=== PATIENT | female | born 1995 | race Caucasian/White ===

== ENCOUNTER 2018-01-26 16:06 | Emergency (ER) | payer OTHER ==
[2018-01-26 16:44] VITALS: BP 112/85; PULSE 97; RESP 18; TEMP 98.2
[2018-01-26] MEDS ORDERED: IBUPROFEN 600 MG TAB PO STA (17:02)
--- NOTE | 2018-01-26 17:16 | ED ---
Lower Extremity Injury HPI - General Chief Complaint: Extremity Injury, Lower Stated Complaint: Knee pain Time Seen by Provider: 01/26/18 16:44 Source: patient Mode of arrival: wheelchair Limitations: no limitations - History of Present Illness Initial Comments: 23-year-old female patient presents to the emergency department today for evaluation of left knee pain. Patient states approximately an hour and a half ago she was up in a trailer when she jumped down landing hard on her left leg. Patient states that she felt a pop in her anterior knee when this occurred. Patient states that she is having some mild anterior pain but feels like her knee is unstable when she attempts to walk. She denies any pain radiation down the leg. Denies any numbness or tingling to the leg. Denies any previous knee injury or surgery. She denies falling down with injury, hitting her head, losing consciousness. Patient denies any headache, neck pain, back pain, chest pain, shortness of breath, dizziness, weakness, abdominal pain, nausea, vomiting , or difficulties with bowel movements or urination. - Related Data Previous Rx's Medication Instructions Recorded Ibuprofen [Motrin] 600 mg PO Q8HR PRN #30 tab 01/26/18 Allergies Allergy/AdvReac Type Severity Reaction Status Date / Time No Known Allergies Allergy Verified 01/26/18 16:44 Review of Systems ROS Statement: Those systems with pertinent positive or pertinent negative responses have been documented in the HPI. ROS Other: All systems not noted in ROS Statement are negative. Past Medical History Past Medical History: No Reported History History of Any Multi-Drug Resistant Organisms: None Reported Past Surgical History: No Surgical Hx Reported Past Psychological History: No Psychological Hx Reported Smoking Status: Never smoker Past Alcohol Use History: None Reported Past Drug Use History: None Reported General Exam Limitations: no limitations General appearance: alert, in no apparent distress, other (This is a well- developed, well-nourished adult female patient in no acute distress. Vital signs upon presentation are temperature 98.2F, pulse 97, respirations 18, blood pressure 112/85, pulse ox 100% on room air.) Eye exam: Present: normal appearance, PERRL, EOMI. Absent: scleral icterus, conjunctival injection, periorbital swelling ENT exam: Present: normal exam, normal oropharynx, mucous membranes moist Respiratory exam: Present: normal lung sounds bilaterally. Absent: respiratory distress, wheezes, rales, rhonchi, stridor Cardiovascular Exam: Present: regular rate, normal rhythm, normal heart sounds. Absent: systolic murmur, diastolic murmur, rubs, gallop, clicks GI/Abdominal exam: Present: soft, normal bowel sounds. Absent: distended, tenderness, guarding, rebound, rigid Extremities exam: Present: normal inspection, full ROM, normal capillary refill , other (Pain with valgus and varus maneuvers. Skin is pink, warm, and dry. Cap refills less than 3 seconds. Pedal pulses 2+ and equal bilaterally. Patient has full range of motion to the left knee with full flexion and extension.). Absent: tenderness, pedal edema, joint swelling, calf tenderness Neurological exam: Present: alert, oriented X3, CN II-XII intact Psychiatric exam: Present: normal affect, normal mood Skin exam: Present: warm, dry, intact, normal color. Absent: rash Course Vital Signs 01/26/18 16:42 Temperature 98.2 F Pulse Rate 97 Respiratory 18 Rate Blood Pressure 112/85 O2 Sat by Pulse 100 Oximetry Medical Decision Making - Medical Decision Making 23-year-old female patient presents to emergency department today for evaluation of left knee pain. Physical examination is relatively unremarkable. Patient had full range of motion pain with valgus and varus maneuvers. X-ray was obtained and showed a small knee joint effusion but no evidence of osseous abnormality. Did discuss the patient most likely has tendon or ligamentous injury. She is instructed to follow-up with orthopedics for recheck in 1-2 days. We will give patient a knee immobilizer to use until she follows up. Prescription for crutches. Anti-inflammatory pain prescription. Return parameters were discussed in detail. She verbalizes understanding and agrees with this plan. - Radiology Data Radiology results: report reviewed, image reviewed X-ray of the left knee was obtained. Findings show small knee joint effusion. No fracture or dislocation. Joint spaces are normal. Impression by Dr. Villegas shows small joint effusion. No fracture seen. Disposition Clinical Impression: Right knee sprain Disposition: HOME SELF-CARE Condition: Good Instructions: Knee Sprain (ED), Knee Immobilizer (ED) Additional Instructions: Rest, ice, elevate the left knee. Use knee immobilizer as needed for comfort and support. Follow-up with orthopedics for reevaluation in 1-2 days. Return here immediately for any new, worsening, or concerning symptoms. Prescriptions: Ibuprofen [Motrin] 600 mg PO Q8HR PRN #30 tab PRN Reason: Pain Is patient prescribed a controlled substance at d/c from ED?: No Referrals: None,Stated [Primary Care Provider] - 1-2 days Time of Disposition: 17:57
--- NOTE | 2018-01-26 17:49 | XR ---
EXAMINATION TYPE: XR knee complete LT DATE OF EXAM: 01/26/2018 COMPARISON: None. Pain and injury 3 views Findings: There is small knee joint effusion. I see no fracture nor dislocation. Joint spaces are nor mal. Impression Small joint effusion. No fracture seen.
== END 2018-01-26 18:44 | disposition home or self-care (01) ==
LOC: EC 16:06
DX: S83.92XA Sprain of unspecified site of left knee, initial encounter (principal); W17.89XA Other fall from one level to another, initial encounter; Y93.39 Activity, other involving climbing, rappelling and jumping off
CPT/HCPCS: 99283